=== PATIENT | female | born 1980 | race Two or more races ===

== ENCOUNTER 2022-05-19 16:53 | Inpatient (IN) | payer OTHER ==
[~2022-05-19] VITALS: Ht 167.6 cm; Wt 114.3 kg
[2022-05-19] MEDS ORDERED: GLIMEPIRIDE4 MG PO (17:24)
[2022-05-19] MEDS ORDERED: LIPITOR40 M1 PO (17:24)
[2022-05-19] MEDS ORDERED: LISINOPRIL10 MG PO (17:24)
[2022-05-19] MEDS ORDERED: ABILIFY5 MG PO (17:25)
[2022-05-19] MEDS ORDERED: RESTORIL30 M1 PO (17:25)
[2022-05-19] MEDS ORDERED: ZOLOFT50 MG PO (17:25)
[2022-05-19] MEDS ORDERED: VISTARIL50 MG PO (17:25)
[2022-05-19] MEDS ORDERED: CLONAZEPAM0.5 M1 PO (17:26)
[2022-05-19] MEDS ORDERED: HUMALOG100 UNIT/2 SQ (17:26)
[2022-05-19] MEDS ORDERED: LANTUS SOL100 UNIT/1 SQ (17:26)
== END 2022-05-21 21:30 | disposition home or self-care (01) | DRG 812 ==
LOC: ER 16:53 → MEDI 21:00
PROVIDERS: ADMIT Internal Medicine; ATTEND Internal Medicine
PROC: BW21ZZZ Computerized Tomography (CT Scan) of Abdomen and Pelvis (ICD-10-PCS; principal; 2022-05-19)
PROC: 30233N1 Transfusion of Nonautologous Red Blood Cells into Peripheral Vein, Percutaneous Approach (ICD-10-PCS; 2022-05-20)
DX: D64.9 Anemia, unspecified (principal); D72.828 Other elevated white blood cell count; R53.1 Weakness; E78.5 Hyperlipidemia, unspecified; I10 Essential (primary) hypertension; E11.21 Type 2 diabetes mellitus with diabetic nephropathy; Z79.4 Long term (current) use of insulin; F31.9 Bipolar disorder, unspecified; Z20.822 Contact with and (suspected) exposure to COVID-19